=== PATIENT | female | born 1995 | race Caucasian/White ===

== ENCOUNTER → 2017-04-09 | Outpatient (CLI) | payer OTHER ==
[~2017-04-09] MED LIST: BIRTH CONTROL; CIPRO500 MG PO; FLAGYL500 MG PO; HYDROCODONE-AP1 EAC6 PO; ZOFRAN ODT4 MG PO
== END ==
LOC: M.ULTRA 04-05 11:02 → M.CT 08:01 → M.ULTRA 11:00
DX: R74.8 Abnormal levels of other serum enzymes (principal)